=== PATIENT | female | born 1935 | race Caucasian/White ===

== ENCOUNTER 2017-08-05 16:15 | Emergency (ER) | payer MEDICARE, OTHER ==
[2017-08-05 17:15] VITALS: BP 217/111; PULSE 88
[2017-08-05 17:17] VITALS: O2SAT 98
[2017-08-05] MEDS ORDERED: Zofran 4 MG/2 ML VIAL IV ONE (17:17)
[2017-08-05] MEDS ORDERED: Pepcid 20 MG VIAL IV ONE ×2 (17:17→17:34)
--- NOTE | 2017-08-05 17:17 | ERPHSYRPT ---
- History of Present Illness Time Seen by Provider: 08/05/17 17:12 Historian: patient, family Exam Limitations: no limitations Patient Subjective Stated Complaint: MID ABD PAIN SINCE EATING LUNCH TODAY. ALSO HAVING DIZZINESS. INTERMITTENT ABD PAIN FOR TWO WEEKS. Triage Nursing Assessment: TO ROOM PER SELF. SKIN W/D, COLOR NORMAL, RESP EASY. ABD SOFT, TENDER MID ABD. Physician History: The patient is an 81-year-old female with her family complaining of another bout of abdominal pain that began suddenly at approximately 1:30 PM and lasted for about an hour and a half. It is now subsiding. She is had the same type of abdominal pain issues occurring of 3 or 4 times over the last several months. Last week she had 2 episodes in the middle of the night. The pain tends to be in the epigastric to right upper quadrant region. She is worried that it's her gallbladder. However, she did have her gallbladder evaluated by ultrasound just a few months ago. Today her pain began about an hour and half after having lunch. She was nauseated but did not vomit. In the past she has had loose stools with this. She denies fever. Her past medical history significant for abdominal pain, hypertension, high cholesterol, diabetes, hysterectomy, bilateral carotid enarterectomy and appendectomy. Timing/Duration: today, hour(s) (06/09) Activities at Onset: none Quality: sharpness, stabbing Abdominal Pain Onset Location: RUQ, epigastric Pain Radiation: no radiation Severity of Pain-Max: severe Severity of Pain-Current: mild Modifying Factors: Improves With: nothing Associated Symptoms: nausea, No chest pain, No heartburn, No vomiting Previous symptoms: same symptoms as today Allergies/Adverse Reactions: Sulfa (Sulfonamide Antibiotics) Allergy (Verified 08/05/17 16:46) Home Medications: Aspirin EC 81 mg [Ecotrin 81 mg] 162 mg PO DAILY 08/05/17 [History] Atorvastatin Calcium [Lipitor] 40 mg PO DAILY 08/05/17 [History] Clonidine HCl 0.1 mg [Catapres 0.1 MG] 0.1 mg PO BID 08/05/17 [History] Diltiazem HCl [Tiazac] 420 mg PO DAILY 08/05/17 [History] Levothyroxine Sodium 75 Mcg [Synthroid 75 Mcg] 75 mcg PO DAILY 08/05/17 [ History] Losartan Potassium 50 mg [Cozaar 50 MG] 50 mg PO DAILY 08/05/17 [History] Metformin HCl 500 mg [Glucophage 500 MG] 500 mg PO DAILY 08/05/17 [History ] Hx Tetanus, Diphtheria Vaccination/Date Given: No Hx Influenza Vaccination/Date Given: No Hx Pneumococcal Vaccination/Date Given: No - Review of Systems Constitutional: No Fever, No Chills Eyes: No Symptoms Ears, Nose, & Throat: No Symptoms Respiratory: No Cough, No Dyspnea Cardiac: No Chest Pain, No Edema, No Syncope Abdominal/Gastrointestinal: Abdominal Pain, Nausea, Diarrhea, No Vomiting Genitourinary Symptoms: No Dysuria Musculoskeletal: No Back Pain, No Neck Pain Skin: No Rash Neurological: No Dizziness, No Focal Weakness, No Sensory Changes Psychological: No Symptoms Endocrine: No Symptoms Hematologic/Lymphatic: No Symptoms Immunological/Allergic: No Symptoms All Other Systems: Reviewed and Negative - Past Medical History Pertinent Past Medical History: Yes ENT History: Cataracts Cardiac History: Hypertension, Other Endocrine Medical History: Diabetes Type II, Hypothyroidism - Past Surgical History Past Surgical History: Yes Cardiac: Vascular Surgery Female Surgical History: Hysterectomy - Social History Smoking Status: Never smoker Exposure to second hand smoke: Yes Drug Use: none Patient Lives Alone: Yes - Female History Hx Now: No - Nursing Vital Signs Nursing Vital Signs: Initial Vital Signs Pulse Rate 97 H 08/05/17 16:39 Respiratory Rate 18 08/05/17 16:39 Blood Pressure 215/104 08/05/17 16:39 O2 Sat by Pulse Oximetry 97 08/05/17 16:39 Pain Scale Pain Intensity 10 - Physical Exam General Appearance: no apparent distress, alert Eye Exam: PERRL/EOMI, eyes nml inspection Ears, Nose, Throat Exam: normal ENT inspection, pharynx normal, moist mucous membranes Neck Exam: normal inspection, non-tender, supple, full range of motion Respiratory Exam: normal breath sounds, lungs clear, No respiratory distress Cardiovascular Exam: regular rate/rhythm, murmur Gastrointestinal/Abdomen Exam: tenderness (LLQ) Pelvic Exam: not done Rectal Exam: not done Back Exam: normal inspection, normal range of motion, No CVA tenderness, No vertebral tenderness Extremity Exam: normal inspection, normal range of motion, pelvis stable Neurologic Exam: alert, oriented x 3, cooperative, normal mood/affect, nml cerebellar function, sensation nml, No motor deficits Skin Exam: normal color, warm, dry SpO2 Interpretation: normal SpO2: 98 Oxygen Delivery: Room Air - Course EKG Interpreted by Me: RATE, Sinus Rhythm, NORMAL AXIS, NORMAL INTERVALS, NORMAL QRS, NORMAL ST-T - CT Exams Abdomen/Pelvis CT Interpretation: Negative, Tele-radiologist Report, Other (stable small HH, colonic diverticulosis, no acute findings per Dr Bonner.) Ordered Tests: Active Orders 24 hr Category Date Time Status EKG-ER Only STAT Care 08/05/17 17:17 Active IV Insertion STAT Care 08/05/17 17:17 Active ABDOMEN AND PELVIS W/0 CONTRAS [CT] Stat Exams 08/05/17 17:17 Taken AMYLASE Stat Lab 08/05/17 17:30 Completed CBC W DIFF Stat Lab 08/05/17 17:30 Completed CMP Stat Lab 08/05/17 17:30 Completed CULTURE,URINE Stat Lab 08/05/17 18:55 Received LIPASE Stat Lab 08/05/17 17:30 Completed Lactic Acid Stat Lab 08/05/17 17:17 Results TROPONIN Q3H Lab 08/05/17 17:30 Completed TROPONIN Q3H Lab 08/05/17 20:30 Ordered TROPONIN Q3H Lab 08/05/17 23:30 Ordered TROPONIN Q3H Lab 08/06/17 02:30 Ordered TROPONIN Q3H Lab 08/06/17 05:30 Ordered UA W/ MICROSCOPIC Stat Lab 08/05/17 18:55 Completed Medication Summary Generic Name Dose Route Start Last Admin Trade Name Freq PRN Reason Stop Dose Admin Sodium Chloride 1,000 mls @ 100 mls/hr 08/05/17 18:00 08/05/17 18:04 Sodium Chloride 0.9% 1000 Ml IV 09/04/17 17:59 100 mls/hr .Q10H MARLON Administration Discontinued Medications Generic Name Dose Route Start Last Admin Trade Name Freq PRN Reason Stop Dose Admin Famotidine 20 mg 08/05/17 17:17 08/05/17 17:34 Pepcid 20 Mg Vial IV 08/05/17 17:18 20 mg STAT ONE Administration Famotidine Confirm 08/05/17 17:34 Pepcid 20 Mg Vial Administered 08/05/17 17:35 Dose 20 mg IV .STK-MED ONE Ondansetron HCl 4 mg 08/05/17 17:17 08/05/17 17:35 Zofran 4 Mg/2 Ml Vial IV 08/05/17 17:18 4 mg STAT ONE Administration Ondansetron HCl Confirm 08/05/17 17:34 Zofran 4 Mg/2 Ml Vial Administered 08/05/17 17:35 Dose 4 mg .ROUTE .STK-MED ONE Potassium Chloride 20 meq 08/05/17 18:13 08/05/17 18:40 Klor Con 10 Meq PO 08/05/17 18:14 20 meq STAT ONE Administration Potassium Chloride Confirm 08/05/17 18:39 Klor Con 10 Meq Administered 08/05/17 18:40 Dose 20 meq PO .STK-MED ONE Lab/Rad Data: Laboratory Result Diagrams 08/05/17 17:30 08/05/17 17:30 Laboratory Results 08/05/17 08/05/17 08/05/17 Range/Units 18:55 17:30 17:30 WBC (4.0-10.5) K/mm3 RBC (4.1-5.4) M/mm3 Hgb (12.0-16.0) gm/dl Hct (35-47) % MCV (78-100) fl MCH (26-32) pg MCHC (32-36) g/dl RDW (11.5-14.0) % Plt Count (150-450) K/mm3 MPV (6-9.5) fl Gran % (36.0-66.0) % Lymphocytes % (24.0-44.0) % Monocytes % (0.0-12.0) % Eosinophils % (0.00-5.0) % Basophils % (0.0-0.4) % Basophils # (0-0.4) Sodium 141 (136-145) mEq/L Potassium 3.2 L (3.5-5.1) mEq/L Chloride 102 (98-107) mEq/L Carbon Dioxide 25.4 (21-32) mEq/L Anion Gap 17.1 H (5-15) MEQ/L BUN 14 (9-20) mg/dL Creatinine 1.05 (0.55-1.30) mg/dl Estimated GFR 53 ML/MIN Glucose 132 H (70-110) MG/DL Lactic Acid (0.4-2.0) Calcium 8.9 (8.5-10.1) mg/dL Total Bilirubin 0.30 (0.2-1.0) mg/dL AST 22 (15-37) U/L ALT 26 (12-78) U/L Alkaline Phosphatase 103 (46-116) U/L Troponin I < 0.017 (0.000-0.056) ng/ml Serum Total Protein 8.2 (6.4-8.2) gm/dL Albumin 3.9 (3.4-5.0) g/dL Amylase 45 (25-115) U/L Lipase 156 (73-393) U/L Ur Collection Type VOID Urine Color LT.YELLOW (YELLOW) Urine Appearance CLEAR (CLEAR) Urine pH 7.0 (5-6) Ur Specific Gratis 1.005 (1.005-1.025) Urine Protein TRACE (Negative) Urine Ketones NEGATIVE (NEGATIVE) Urine Blood TRACE NON-HEM (0-5) Roverto/ul Urine Nitrite NEGATIVE (NEGATIVE) Urine Bilirubin NEGATIVE (NEGATIVE) Urine Urobilinogen NORMAL (0-1) mg/dL Ur Leukocyte Esterase 1+ (NEGATIVE) Urine Microscopic RBC 5-10 (0-2) /HPF Urine Microscopic WBC 2-5 (0-5) /HPF Ur Epithelial Cells FEW (FEW) /HPF Urine Bacteria FEW (NEGATIVE) /HPF Urine Mucus SLIGHT (NEGATIVE) /HPF Urine Culture Reflexed YES (NO) Urine Glucose 50 (NEGATIVE) mg/dL Specimen Received 08/05/17 2243 08/05/17 08/05/17 Range/Units 17:30 17:17 WBC 10.5 (4.0-10.5) K/mm3 RBC 4.66 (4.1-5.4) M/mm3 Hgb 14.2 (12.0-16.0) gm/dl Hct 43.8 (35-47) % MCV 94.0 (78-100) fl MCH 30.5 (26-32) pg MCHC 32.4 (32-36) g/dl RDW 13.9 (11.5-14.0) % Plt Count 419 (150-450) K/mm3 MPV 10.1 H (6-9.5) fl Gran % 78.9 H (36.0-66.0) % Lymphocytes % 14.9 L (24.0-44.0) % Monocytes % 5.3 (0.0-12.0) % Eosinophils % 0.7 (0.00-5.0) % Basophils % 0.2 (0.0-0.4) % Basophils # 0.02 (0-0.4) Sodium (136-145) mEq/L Potassium (3.5-5.1) mEq/L Chloride (98-107) mEq/L Carbon Dioxide (21-32) mEq/L Anion Gap (5-15) MEQ/L BUN (9-20) mg/dL Creatinine (0.55-1.30) mg/dl Estimated GFR ML/MIN Glucose (70-110) MG/DL Lactic Acid 2.3 H (0.4-2.0) Calcium (8.5-10.1) mg/dL Total Bilirubin (0.2-1.0) mg/dL AST (15-37) U/L ALT (12-78) U/L Alkaline Phosphatase (46-116) U/L Troponin I (0.000-0.056) ng/ml Serum Total Protein (6.4-8.2) gm/dL Albumin (3.4-5.0) g/dL Amylase (25-115) U/L Lipase (73-393) U/L Ur Collection Type Urine Color (YELLOW) Urine Appearance (CLEAR) Urine pH (5-6) Ur Specific Gratis (1.005-1.025) Urine Protein (Negative) Urine Ketones (NEGATIVE) Urine Blood (0-5) Roverto/ul Urine Nitrite (NEGATIVE) Urine Bilirubin (NEGATIVE) Urine Urobilinogen (0-1) mg/dL Ur Leukocyte Esterase (NEGATIVE) Urine Microscopic RBC (0-2) /HPF Urine Microscopic WBC (0-5) /HPF Ur Epithelial Cells (FEW) /HPF Urine Bacteria (NEGATIVE) /HPF Urine Mucus (NEGATIVE) /HPF Urine Culture Reflexed (NO) Urine Glucose (NEGATIVE) mg/dL Specimen Received - Progress Progress: improved Counseled pt/family regarding: lab results, diagnosis, rad results - Departure Time of Disposition: 19:27 Departure Disposition: Home Clinical Impression: Biliary colic, Hypokalemia Condition: Stable Critical Care Time: No Referrals: ANNA MALIK [Primary Care Provider] - Additional Instructions: You have biliary colic and a low serum potassium level. You were given famotidine 20 mg, Zofran 4 mg, and fluids by IV in the ER. You were given potassium 20 mEq orally. Please follow-up with Dr. Malik at your earliest convenience, hopefully this week. When you see Dr. Malik, mentioned to your about your loose stools. Also I would recommend that you be evaluated by a surgeon for your episodes of abdominal pain. In the meantime, avoid fatty foods.
[2017-08-05] MEDS ORDERED: Zofran 4 MG/2 ML VIAL ONE (17:34)
[2017-08-05 17:43] LABS: Lactic Acid 2.3 (0.4-2.0)
[2017-08-05 17:56] LABS: BASOPHIL % 0.2 % (0.0-0.4); Basophil (Absolute #) 0.02 (0-0.4); Eosinophil % 0.7 % (0.00-5.0); Eosinophil (Absolute #) 0.07 (0-0.5); Granulocyte Absolute (ANC) 8.25 (1.4-6.9); Granulocytes % 78.9 % (36.0-66.0); Hematocrit 43.8 % (35-47); Hemoglobin 14.2 gm/dl (12.0-16.0); Lymphocyte (Absolute #) 1.56 (1.0-4.6); Lymphocytes % 14.9 % (24.0-44.0); Mean Corpuscular Hemoglobin 30.5 pg (26-32); Mean Corpuscular Hgb Concent. 32.4 g/dl (32-36); Mean Platelet Volume 10.1 fl (6-9.5); Monocyte (Absolute #) 0.55 (0.0-1.3); Monocytes % 5.3 % (0.0-12.0); Platelet Count 419 K/mm3 (150-450); Red Blood Count 4.66 M/mm3 (4.1-5.4); Red Cell Distribution Width 13.9 % (11.5-14.0); White Blood Count 10.5 K/mm3 (4.0-10.5)
[2017-08-05] MEDS ORDERED: Sodium Chloride 0.9% 1000 ML 1,000 ML ONE (17:58)
[2017-08-05] MEDS ORDERED: Sodium Chloride 0.9% 1000 ML 1,000 ML IV SCH (18:00)
[2017-08-05 18:01] LABS: ALBUMIN 3.9 g/dL (3.4-5.0); ANION GAP 17.1 MEQ/L (5-15); BILIRUBIN,TOTAL 0.3 mg/dL (0.2-1.0); Calcium 8.9 mg/dL (8.5-10.1); Carbon Dioxide 25.4 mEq/L (21-32); Creatinine 1 1.05 mg/dl (0.55-1.30); Potassium 3.2 mEq/L (3.5-5.1); Total Protein 8.2 gm/dL (6.4-8.2)
[2017-08-05] MEDS ORDERED: Klor Con 10 MEQ PO ONE ×2 (18:13→18:39)
[2017-08-05 19:09] LABS: Appearance CLEAR (CLEAR); Leukocyte Esterase 1+ (NEGATIVE); Nitrite NEGATIVE (NEGATIVE); Protein,Urine Dip TRACE (Negative); Specific Gravity 1.005 (1.005-1.025)
[2017-08-05 19:10] LABS: Bacteria FEW /HPF (NEGATIVE); Bilirubin NEGATIVE (NEGATIVE); Blood TRACE NON-HEM Ery/ul (0-5); Epithelial Cells FEW /HPF (FEW); Glucose 50 mg/dL (NEGATIVE); Ketones NEGATIVE (NEGATIVE); Mucus SLIGHT /HPF (NEGATIVE); Urobilinogen NORMAL mg/dL (0-1)
--- NOTE | 2017-08-05 19:46 | XRAY ---
Indication: Right mid abdominal pain. Multiple contiguous axial images obtained through the abdomen and pelvis without contrast as ordered. Comparison: Contrast exam February 04, 2017. Lung bases demonstrate stable left base fibrosis/scarring. No infiltrate or effusion. Heart is not enlarged. Stable small hiatal hernia. Noncontrasted stomach and bowel loops appears nonobstructed with stable descending/sigmoid diverticulosis. Previous reported appendectomy and hysterectomy. No free fluid/air. Stable mild fatty liver and hepatic/splenic calcified granulomas. Previous bilateral renal cysts not well-seen on this noncontrast exam. Remaining pancreas, adrenal glands, ureters, and bladder appear unremarkable. Moderate aortoiliac calcifications without AAA. Osseous structures intact with stable lumbar degenerative changes again greatest at the lumbosacral junction. No ventral or inguinal hernias. Impression: 1. Stable small hiatal hernia, fatty liver, colonic diverticulosis, and evidence for old granulomatous disease. 2. No new or acute intra-abdominal/pelvic abnormalities on this noncontrast exam. CT DI 12.35
== END 2017-08-05 19:51 | disposition home or self-care (01) ==
LOC: ED 16:15
DX: K80.50 Calculus of bile duct without cholangitis or cholecystitis without obstruction (principal); E87.6 Hypokalemia; R10.11 Right upper quadrant pain; R10.13 Epigastric pain
CPT/HCPCS: 36000; 36415; 74176; 80053; 81000; 82150; 83605; 83690; 84484; 85025; 87086; 93005; 96360; 96374; 96375; 99283; J2405; A9270-GY